=== PATIENT | female | born 1970 | race Two or more races ===

== ENCOUNTER 2022-12-10 05:37 | Day surgery (SDC) | payer OTHER ==
[~2022-12-10] VITALS: Ht 167.6 cm; Wt 86.6 kg
[2022-12-10] MEDS ORDERED: BUPIVACAINE-MPF 0.25% 30 ML VIAL INJ ONE (07:34)
[2022-12-10] MEDS ORDERED: LIDOCAINE MPF 1% 0 ML ONE (07:35)
[2022-12-10] MEDS ORDERED: LIDOCAINE/EPI MPF 2%1:200000 10 ML VIAL INJ ONE (07:36)
[2022-12-10 07:40] LABS: BASOPHILS # (AUTO) 0.1 K/uL (0.00-0.22); EOSINOPHILS # (AUTO) 0.4 K/uL (0-0.4); EOSINOPHILS % (AUTO) 5.9 % (0.0-4.0); HEMATOCRIT 37.4 % (36-48); HEMOGLOBIN 12.6 g/dL (12.0-16.0); LYMPHOCYTES # (AUTO) 2.2 K/uL (2.5-16.5); LYMPHOCYTES % (AUTO) 35.3 % (20.5-51.1); MEAN CORPUSCULAR HEMOGLOBIN 28 pg (27-31); MEAN CORPUSCULAR HGB CONC 34 g/dL (33-37); MEAN CORPUSCULAR VOLUME 84.8 fL (80-94); MONOCYTES # (AUTO) 0.5 K/uL (0.8-1.0); MONOCYTES % (AUTO) 8.9 % (1.7-9.3); NEUTROPHILS % (AUTO) 48.9 % (42.2-75.2); PLATELET COUNT (AUTO) 369 K/uL (140-450); RED BLOOD CELL COUNT(AUTO) 4.42 MIL/uL (4.20-5.40); RED CELL DISTRIBUTION WIDTH 12.9 % (11.6-13.7); WHITE BLOOD COUNT (AUTO) 6.1 K/uL (4.8-10.8)
[2022-12-10 07:52] LABS: ALBUMIN 3.7 g/dL (3.4-5.0); ANION GAP 13.2 (8-16); CALCIUM 9.1 mg/dL (8.5-10.1); CARBON DIOXIDE 26.7 mmol/L (21-32); CREATININE 0.6 mg/dL (0.6-1.3); POTASSIUM 3.9 mmol/L (3.5-5.1); TOTAL BILIRUBIN 0.6 mg/dL (0.0-1.0)
[2022-12-10] MEDS ORDERED: SEVOFLURANE 250 ML BTL INH ONE (08:04)
[2022-12-10] MEDS ORDERED: fentaNYL citrate 0.05 MG/ML VIAL ONE (08:07)
[2022-12-10] MEDS ORDERED: ceFAZolin 1,000 MG VIAL ONE (08:07)
[2022-12-10] MEDS ORDERED: PROPOFOL 200 MG/20 ML VIAL IV ONE (09:49)
[2022-12-10] MEDS ORDERED: ROCURONIUM 50 MG/5 ML VIAL IV ONE ×2 (09:49)
[2022-12-10] MEDS ORDERED: KETOROLAC 30 MG/ML VIAL ONE (09:49)
[2022-12-10] MEDS ORDERED: ONDANSETRON 4 MG/2 ML VIAL ONE (09:52)
[2022-12-10] MEDS ORDERED: CONJUGATED ESTROGENS VAG CREAM 42 GM TUBE VG SCH (10:09)
[2022-12-10] MEDS ORDERED: NEOSTIGMINE 1:1000 10 MG/10 ML VIAL ONE (10:18)
[2022-12-10] MEDS ORDERED: GLYCOPYRROLATE 0.2 MG/ML VIAL ONE ×5 (10:18)
[2022-12-10] MEDS: HYDROmorphone 1 MG/ML AMP IVP PRN ×3 (10:30→11:00)
[2022-12-10] MEDS ORDERED: LACTATED RINGERS 1,000 ML IV SCH (10:35)
[2022-12-10] MEDS ORDERED: LABETALOL 100 MG/20 ML VIAL ONE (10:39)
[2022-12-10] MEDS ORDERED: HYDROmorphone PFS 2 MG/ML SYR ONE (10:39)
[2022-12-10] MEDS ORDERED: hydrALAZINE 20 MG/ML VIAL IVP PRN (10:39)
[2022-12-10] MEDS ORDERED: METOCLOPRAMIDE 10 MG/2 ML INJ VIAL IVP PRN (10:39)
[2022-12-10] MEDS ORDERED: LABETALOL 20 MG/4 ML VIAL IVP PRN (10:39)
[2022-12-10] MEDS ORDERED: IBUPROFEN 800 MG TAB PO SCH (17:26)
== END 2022-12-10 22:40 | disposition home or self-care (01) ==
LOC: MDS 05:37 → MMU 06:45 → MDS 22:40
PROVIDERS: ATTEND Obstetrics & Gynecology
DX: N81.10 Cystocele, unspecified (principal); N81.6 Rectocele; N39.46 Mixed incontinence; N81.9 Female genital prolapse, unspecified; K29.70 Gastritis, unspecified, without bleeding; G89.18 Other acute postprocedural pain; Z88.0 Allergy status to penicillin; Z79.899 Other long term (current) drug therapy
CPT/HCPCS: 36415; 57260; 57288; 71045; 80053; 84703; 85025; 93005; C1771; J0690; J1170; J1885; J2001; J2405; J2704; J2710; J3010; J3490; J7120; Q0092